=== PATIENT | male | born 2000 | race Hispanic/Latino ===

== ENCOUNTER 2023-01-25 01:25 | Emergency (ER) | payer SELFPAY ==
[2023-01-25] MEDS ORDERED: HYDROcodone/Acetaminophen 10/325 mg Tablet ONE (06:04)
== END 2023-01-25 09:40 | disposition home or self-care (01) ==
LOC: ERS 01:25
DX: S02.2XXA Fracture of nasal bones, initial encounter for closed fracture (principal); S02.32XA Fracture of orbital floor, left side, initial encounter for closed fracture; V00.131A Fall from skateboard, initial encounter
CPT/HCPCS: 70450; 70486; 72125